=== PATIENT | male | born 1995 | race Caucasian/White ===

== ENCOUNTER 2020-06-04 17:08 | Emergency (ER) | payer OTHER ==
[~2020-06-04] VITALS: Ht 175.3 cm; Wt 87.5 kg
[2020-06-04] MEDS ORDERED: CLOT1CRE56 TOP (21:50)
[2020-06-04 21:56] VITALS: BP 131/81
== END 2020-06-04 21:59 | disposition home or self-care (01) ==
LOC: M ED 17:08
DX: B36.0 Pityriasis versicolor (principal); Z88.0 Allergy status to penicillin

== ENCOUNTER 2020-06-25 14:08 | Emergency (ER) | payer OTHER ==
[~2020-06-25] VITALS: Ht 175.3 cm; Wt 88.7 kg
[~2020-06-25 14:08] MED LIST: CLOT1CRE56 TOP
[2020-06-25 14:09] VITALS: BP 145/67
[2020-06-25] MEDS ORDERED: MEDR4PAK PO (15:36)
== END 2020-06-25 16:00 | disposition home or self-care (01) ==
LOC: M ED 14:08
DX: L50.9 Urticaria, unspecified (principal); T78.40XA Allergy, unspecified, initial encounter